=== PATIENT | female | born 1970 | race Caucasian/White ===

== ENCOUNTER → 2017-06-02 | Day surgery (SDC) | payer OTHER ==
[~2017-06-02] MED LIST: DOCUSATE SODIU100 MG PO; FLOVENT DISKUS50 MCG; GABAPENTIN300 MG PO; HYDROCODON-ACE1 EAC7 PO; KLONOPIN1 MG PO; LIPITOR PO; MINIPRESS PO; MIRALAX17 GM PO; MOBIC15 MG PO; NEXIUM PO; PROAIR RESPICL90 MCG INH; SUMATRIPTA6 MG/0.5 M SUBQ; SYMBICORT INH; TOPIRAMATE ER150 MG PO; ZOFRAN PO; ZOLOFT100 MG PO
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
== END | disposition home or self-care (01) ==
LOC: CSUR 07:02 → EDBD 07:02 → CSUR 09:00
DX: T85.112A Breakdown (mechanical) of implanted electronic neurostimulator of spinal cord electrode (lead), initial encounter (principal); T85.113A Breakdown (mechanical) of implanted electronic neurostimulator, generator, initial encounter; M51.36 Other intervertebral disc degeneration, lumbar region; M50.30 Other cervical disc degeneration, unspecified cervical region; G89.29 Other chronic pain; K21.9 Gastro-esophageal reflux disease without esophagitis; J45.909 Unspecified asthma, uncomplicated; G43.909 Migraine, unspecified, not intractable, without status migrainosus; I10 Essential (primary) hypertension; E78.5 Hyperlipidemia, unspecified; J43.9 Emphysema, unspecified; F17.210 Nicotine dependence, cigarettes, uncomplicated; Z90.710 Acquired absence of both cervix and uterus; Z88.6 Allergy status to analgesic agent; Z88.8 Allergy status to other drugs, medicaments and biological substances; Z79.51 Long term (current) use of inhaled steroids; Z79.899 Other long term (current) drug therapy; Z98.890 Other specified postprocedural states; Y83.1 Surgical operation with implant of artificial internal device as the cause of abnormal reaction of the patient, or of later complication, without mention of misadventure at the time of the procedure
CPT/HCPCS: 77003; C1778; C1779; C1820; J0690; J1170; J2250; J2405; J3010